=== PATIENT | female | born 1950 | race African-American/Black ===

== ENCOUNTER 2025-06-04 18:25 | Inpatient (IN) ==
[2025-06-04 19:19] LABS: Hematocrit (blood only) 44.3 % (37.0-47.0); Hemoglobin 13.0 g/dL (12.0-16.0); Immature Granulocytes # (auto) 0.04 K/uL (0.01-0.20); Immature Granulocytes % (auto) 0.4 %; Mean Corpuscular Hemoglobin 27.0 pg (25.0-34.0); Mean Corpuscular Volume 91.9 fL (80.0-100.0); Platelet Count 238 K/uL (130-400); RDW Standard Deviation 49.8 fL (36.4-46.3); Red Blood Count 4.82 M/uL (4.20-5.40); White Blood Count 9.94 K/ul (4.8-10.8)
[2025-06-04] MEDS: ONDANSETRON INJ 2 MG/ML 2 ML VIAL IV STA (19:28)
[2025-06-04 19:41] LABS: Alanine Aminotransferase 12 U/L (7-52); Albumin Globulin Ratio 1.0 (0.9-2); Albumin Level 4.3 gm/dl (3.4-5.0); Alkaline Phosphatase 81 U/L (34-104); Bilirubin,Total 0.4 mg/dl (0.2-1.0); Blood Urea Nitrogen 51 mg/dl (6-23); Calcium 9.7 mg/dl (8.6-10.3); Carbon Dioxide 18 mmol/L (21-32); Chloride 110 mmol/L (98-107); Globulin 4.5 gm/dl (2.5-4.0); Glucose 159 mg/dl (70-99(Fasting)); Lipase 315 U/L (11-82); Total Protein 8.8 gm/dl (6.0-8.3)
--- NOTE | 2025-06-04 19:57 | Emergency Department Note ---
ED Provider Note History of Present Illness Chief Complaint: Abdominal Pain Stated Complaint: STOMACH PAIN VOMIT DIARRHEA Time Seen by Provider: 06/04/25 18:41 74-year-old female, history of type 2 diabetes, chronic kidney disease stage IIIb, hypertension, atrial flutter, secondary hyperparathyroidism, COPD on 2 L/min oxygen daily with CPAP use at nighttime, as well as history of autism spectrum disorder, who presents to the emergency department with her grandchildren for evaluation of nausea, vomiting and profuse diarrhea for the past 2 days. They report that they have been unable to get adequate fluids on board. They also tried an Imodium A-D today with no improvement of her diarrhea. The patient complains of generalized abdominal discomfort. She denies any chest pain or shortness of breath. The patient was unable to rate her pain on my examination, but rated her discomfort a 10 out of 10 in triage. Home Medications Medication Instructions Recorded Confirmed Type acetaminophen 325 mg tablet 650 mg PO BID PRN Pain 05/29/25 06/04/25 History albuterol sulfate 2.5 mg/3 mL 2.5 mg inhalation Q4H PRN 05/29/25 06/04/25 History (0.083 %) solution for nebulization Shortness Of Breath Or Wheezing allopurinol 100 mg tablet 100 mg PO DAILY 05/29/25 06/04/25 History aspirin 81 mg tablet 81 mg PO DAILY 05/29/25 06/04/25 History cranberry extract 500 mg capsule 500 mg PO DAILY 05/29/25 06/04/25 History empagliflozin 10 mg tablet 10 mg PO DAILY 05/29/25 06/04/25 History (Jardiance) ferrous sulfate 325 mg (65 mg 325 mg PO DAILY 05/29/25 06/04/25 History iron) tablet (FeroSul) fluticasone fur. 200 mcg-umeclid 1 inh inhalation DAILY 05/29/25 06/04/25 History 62.5 mcg-vilant 25 mcg inhalat.powder (Trelegy Ellipta) folic acid 1 mg tablet 1 mg PO DAILY 05/29/25 06/04/25 History gabapentin 100 mg capsule 100 mg PO TID 05/29/25 06/04/25 History hydrochlorothiazide 12.5 mg tablet 12.5 mg PO DAILY 05/29/25 06/04/25 History lidocaine 5 % topical patch 1 patch topical DAILY 05/29/25 06/04/25 History melatonin 3 mg tablet 3 mg PO HS PRN Sleep 05/29/25 06/04/25 History montelukast 10 mg tablet 10 mg PO DAILY 05/29/25 06/04/25 History nifedipine 30 mg tablet,extended 30 mg PO DAILY 05/29/25 06/04/25 History release nystatin 100,000 unit/gram topical 1 applic topical BID 05/29/25 06/04/25 History powder sertraline 25 mg tablet 25 mg PO DAILY 05/29/25 06/04/25 History atorvastatin 20 mg tablet 20 mg PO QPM #90 tabs 06/03/25 06/04/25 Rx Allergies Allergy/AdvReac Type Severity Reaction Status Date / Time No Known Allergies Allergy Verified 06/04/25 20:18 Past Med/Surg History Problem List (Updated 06/04/25 @ 20:12 by Karl Garg) Nausea, vomiting and diarrhea (Acute) Elevated troponin I level (Acute) Elevated lipase (Acute) Acute kidney injury superimposed on stage 3b chronic kidney disease (Acute) Hyperuricemia Recurrent UTI Screening for cardiovascular condition On supplemental oxygen therapy CKD (chronic kidney disease) Medical History HTN (hypertension) Anxiety and depression COPD (chronic obstructive pulmonary disease) Chronic kidney disease, stage 3b Secondary hyperparathyroidism Sarcoidosis Anemia in chronic kidney disease Autism spectrum disorder with accompanying intellectual impairment, requiring substantial support (level 2) Vitamin D deficiency Chronic respiratory failure with hypoxia H/O renal calculi JOAQUIN on CPAP Atrial flutter As per the correction records. Not on anticoagulation or beta margaux. Heart rate usually in 60s. Type 2 diabetes mellitus with peripheral neuropathy Hyperlipidemia associated with type 2 diabetes mellitus Asthma Surgical History No pertinent past surgical history Family History Mother Myocardial infarction Father Myocardial infarction Daughter Hypertension Denies family history of Ovarian cancer Prostate cancer Heart disease Breast cancer Colorectal cancer Stroke Social History Smoking Status: Former smoker Tobacco Type: Cigarettes Age Started Using Tobacco: 16; Age Quit Using Tobacco: 29; packs per day: 0.25; Second Hand Exposure: Yes; Do You Dip or Chew Tobacco: No; Hx Alcohol Use: No Hx Substance Use: No Preferred Language: [place]i Communication Ability: Effective marital status: Single Current Living Situation: Family current occupational status: disabled How many Children do You have: 2 Feels Safe at Home: Yes Childhood Exposure to Second-Hand Smoke: Yes Diet: regular caffeine: Yes Dental Care, Regularly: No Physical Activity Frequency: Does not Exercise Seatbelt Use: always Sunscreen Use: No Do you think of yourself as: straight/heterosexual Gender Identity: Female Assistive Devices: CPAP, Glasses and Oxygen - Continuous Physical Exam Vital Signs Vital Signs - 24 hr 06/04/25 18:35 06/04/25 18:56 06/04/25 20:20 Temperature 37.2 C Temperature Source Temporal Artery Scan Pulse Rate 101 H 72 89 Pulse Rhythm Regular Respiratory Rate 16 Respiratory Effort / Characteristics Non-Labored Spontaneous Respiratory Depth Normal Respiratory Pattern Regular Blood Pressure 169/93 H Blood Pressure Mean 118 Pulse Oximetry 96 96 Oxygen Delivery Method Nasal Cannula Nasal Cannula Oxygen Flow Rate 2 2 Sepsis Recent Fever Within 48 Hours No Sepsis New/Unexplained Change in Mental Status N/A Sepsis Action Taken by Nursing No Action Required CONSTITUTIONAL: Patient appears in moderate discomfort. Patient does not appear toxic. Collecting history is difficult because of her autism. HEENT: No sclericterus or conjunctival injection. Mucous membranes are dry. RESPIRATORY: Clear to auscultation bilaterally with no wheezing, crackles, rhonchi or stridor. CARDIOVASCULAR: Regular rate and rhythm with no murmurs, rubs or gallops. GASTROINTESTINAL: Bowel sounds present in all quadrants. Patient has mild and generalized abdominal tenderness to palpation while watching the patient's face. No obvious rigidity, guarding or rebound. MUSCULOSKELETAL: Full range of motion of all joints without discomfort. INTEGUMENTARY: No rash or other significant dermatologic conditions noted. HEMATOLOGIC: No ecchymosis or petechiae. NEUROLOGIC: No focal neurologic deficits appreciated. Course Course Patient history and physical exam were performed. Nursing notes were reviewed. Vital signs from triage were reviewed, showing an elevated blood pressure. The patient is mildly tachycardic at 101 bpm. She is afebrile and not hypoxic. IV access was established, and labs were ordered and drawn. The patient was initially hydrated with a normal saline 500 cc bolus, as well as IV Zofran and Tylenol. An ECG was performed, showing sinus rhythm with a first-degree AV block and bifascicular block. The patient was placed on manager monitoring while in the emergency department. Abdomen x-ray with chest view shows gastric distention without obvious obstruction. Cardiomegaly is noted with an elevated left hemidiaphragm. No prior imaging was found for comparison. Review of labs shows relatively normal CBC with a mildly elevated neutrophil count. CMP shows a bumped creatinine of 2.13 with an elevated troponin of 15.5 and lipase of 315. We were unable to collect a urine from the patient. On evaluation, the patient did report improvement of symptoms. She was administered an additional normal saline 500 cc bolus. Case was discussed with Dr. Crespo, ED team physician, who recommended hospitalist evaluation. I then reached out to our Inserting Press Operator, who contacted the [facility] hospitalist service. I spoke with Dr. López who agreed to evaluate the patient. Please see hospitalist dictations for further treatment and final disposition. Administered Medications Discontinued Medications Acetaminophen (Ofirmev) 1,000 mg in 100 mls @ 400 mls/hr IV NOW STA Stop: 06/04/25 19:04 Last Admin: 06/04/25 20:11 Dose: 400 mls/hr Documented By: [facility] Sodium Chloride (Nss) 500 mls @ 999 mls/hr IV .Q31M ONE Stop: 06/04/25 19:20 Last Admin: 06/04/25 20:11 Dose: 999 mls/hr Documented By: [facility] Ondansetron HCl (Ondansetron Inj 2 Mg/Ml 2 Ml Vial) 4 mg IV NOW STA Stop: 06/04/25 18:51 Last Admin: 06/04/25 19:28 Dose: 4 mg Documented By: [facility] Medical Decision Making Medical Records Attestation: I reviewed the patient's medical records. Home Medications was personally reviewed by hi Laboratory Data Attestation: I reviewed the patient's lab results. 06/04/25 19:04 06/04/25 19:04 Lab Results 06/04/25 Range/Units 19: WBC 9.94 (4.8-10.8) K/ul RBC 4.82 (4.20-5.40) M/uL Hgb 13.0 (12.0-16.0) g/dL Hct 44.3 (37.0-47.0) % MCV 91.9 (80.0-100.0) fL MCH 27.0 (25.0-34.0) pg MCHC 29.3 L (32.0-36.0) g/dL RDW Std Deviation 49.8 H (36.4-46.3) fL RDW Coeff of Isabell 14.9 H (11.5-14.5) % Plt Count 238 (130-400) K/uL MPV 11.2 (9.4-12.4) fL Immature Gran % (Auto) 0.4 % Neut % (Auto) 84.8 % Lymph % (Auto) 7.6 % Page % (Auto) 6.6 % Eos % (Auto) 0.5 % Baso % (Auto) 0.1 % Neut # (Auto) 8.42 H (1.40-6.50) K/uL Lymph # (Auto) 0.76 L (1.20-3.40) K/uL Page # (Auto) 0.66 H (0.11-0.59) K/uL Eos # (Auto) 0.05 (0.00-0.50) K/uL Baso # (Auto) 0.01 (0.00-0.20) K/uL Immature Gran # (Auto) 0.04 (0.01-0.20) K/uL Sodium TNP Potassium TNP Chloride 110 H (98-107) mmol/L Carbon Dioxide 18 L (21-32) mmol/L Anion Gap TNP BUN 51 H (6-23) mg/dl Creatinine 2.13 H (0.6-1.2) mg/dl Est Cr Clr Drug Dosing Not Reportable eGFR 23.71 BUN/Creatinine Ratio 23.9 H (10-20) Glucose 159 H (70-99(Fasting)) mg/dl Calcium 9.7 (8.6-10.3) mg/dl Total Bilirubin 0.4 (0.2-1.0) mg/dl AST TNP ALT 12 (7-52) U/L Alkaline Phosphatase 81 (34-104) U/L Troponin I High Sens 15.5 H (0-14) pg/ml Total Protein 8.8 H (6.0-8.3) gm/dl Albumin 4.3 (3.4-5.0) gm/dl Globulin 4.5 H (2.5-4.0) gm/dl Albumin/Globulin Ratio 1.0 (0.9-2) Lipase 315 H (11-82) U/L Imaging Data Attestation: I personally reviewed and interpreted this imaging study as follows: My Impression: My interpretation of abdomen x-ray with chest view shows a distended stomach without obstructive pattern, abdominal free air, pneumonia or pneumothorax. Patient does have cardiomegaly, as well as an elevated left hemidiaphragm. Radiologist report was also reviewed with concurrence. ECG Data Attestation: I personally reviewed and interpreted this ECG as follows: Indication: + abdominal pain, + nausea and + vomiting Rate (beats per minute): 67 Rhythm: + sinus rhythm ECG Intervals/blocks: + First degree AV block, + Left anterior fascicular block and + Right Bundle branch block ECG Findings: + Other (Bifascicular block) Comparison ECG Date: from (01/26/2025) Change: no significant change MDM Narrative Cardiac monitoring: An order was placed for continuous cardiac monitoring. The monitor shows a rate of 64 bpm with a sinus rhythm with first-degree AV block and bifascicular block. monitoring analyst history was reviewed throughout the evaluation, and no dysrhythmias were noted. See ED Course section for further details of today's visit. Patient presents with acute onset of nausea, vomiting and profuse watery diarrhea 2 days ago. The patient does have a history of stage III chronic kidney disease, with a bumped creatinine today, likely secondary to dehydration. She also has an elevated lipase and troponin, likely secondary to stress-induced changes from her illness. Patient is afebrile and does not have any significant leukocytosis to suggest overwhelming infection. Her clinical examination is not suggestive of a surgical abdomen. Given her acute state, I do feel that further hospitalist evaluation and management is warranted. The case was discussed with the [facility] hospitalist service, who agrees to evaluate the patient. Impression Acute kidney injury superimposed on stage 3b chronic kidney disease, Elevated lipase, Elevated troponin I level, Nausea, vomiting and diarrhea Discharge Plan Visit Data Chief Complaint: Abdominal Pain Stated Complaint: STOMACH PAIN VOMIT DIARRHEA ED Provider: Marcin Nunes ED Midlevel Provider: Karl Garg Discharge Problem: Acute kidney injury superimposed on stage 3b chronic kidney disease, Elevated lipase, Elevated troponin I level, Nausea, vomiting and diarrhea Patient Disposition: Admitted As Inpatient Condition: Fair Forms Stand Alone Forms: My [facility] Prescriptions Prescriptions: No Action montelukast 10 mg tablet 10 mg PO DAILY allopurinol 100 mg tablet 100 mg PO DAILY aspirin 81 mg tablet 81 mg PO DAILY Jardiance 10 mg tablet 10 mg PO DAILY ferrous sulfate [FeroSul] 325 mg (65 mg iron) tablet 325 mg PO DAILY folic acid 1 mg tablet 1 mg PO DAILY gabapentin 100 mg capsule 100 mg PO TID Rx Instructions: for pain hydrochlorothiazide 12.5 mg tablet 12.5 mg PO DAILY Rx Instructions: for BP/fluid retention melatonin 3 mg tablet 3 mg PO HS PRN (Reason: Sleep) nifedipine 30 mg tablet extended release 30 mg PO DAILY Rx Instructions: for BP nystatin 100,000 unit/gram powder 1 applic topical BID Rx Instructions: under breast lidocaine 5 % adhesive patch,medicated 1 patch topical DAILY Rx Instructions: leave on most painful area for up to 12 hrs Trelegy Ellipta 200-62.5-25 mcg blister with device 1 inh inhalation DAILY albuterol sulfate 2.5 mg /3 mL (0.083 %) solution for nebulization 2.5 mg inhalation Q4H PRN (Reason: Shortness Of Breath Or Wheezing) cranberry extract 500 mg capsule 500 mg PO DAILY Rx Instructions: administer with meals for UTI prevention sertraline 25 mg tablet 25 mg PO DAILY acetaminophen 325 mg tablet 650 mg PO BID PRN (Reason: Pain) atorvastatin 20 mg tablet 20 mg PO QPM Qty: 90 3RF Rx Instructions: PER PT'S GRANDDAUGHTER "DID NOT FEATHER MAKER FROM PHARMACY YET, NOT STARTED YET". Referrals Referrals: Beena Berman MD [Primary Care Provider] - ED DC CONDITION Conditon at Discharge Condition at Discharge: Fair
[2025-06-04] MEDS: SODIUM CHLORIDE 0.9% 500 ML IV ONE ×2 (20:11→21:22)
[2025-06-04] MEDS: ACETAMINOPHEN 1,000 MG/100 ML VIAL IV STA (20:11)
--- NOTE | 2025-06-04 20:25 | XRay Report ---
Exam(s): XR ABDOMEN, 2 views EXAM: XR Abdomen, 2 Views and XR Chest, 1 View CLINICAL HISTORY: Reason for exam: Abd pain, N/V/D. TECHNIQUE: Frontal view of the chest, frontal view of the abdomen/pelvis and upright or decubitus view of the abdomen. COMPARISON: No relevant prior studies available. FINDINGS: Lungs: Unremarkable. No consolidation. Pleural space: Unremarkable. No pneumothorax. Heart: Cardiomegaly. Mediastinum: Unremarkable. Normal mediastinal contour. Intraperitoneal space: No gaseous distention of the small bowel or colon. Paucity of bowel gas. There is gaseous distention of the stomach. No free air. Gastrointestinal tract: Unremarkable. No dilation. Bones/joints: Severe degenerative changes in the shoulders. Other findings: Elevated left hemidiaphragm. IMPRESSION: 1. Gaseous distention of the stomach. No evidence of small bowel obstruction. 2. Cardiomegaly. 3. Elevated left hemidiaphragm. Electronically signed by: Jean Claude Albarado MD 06/04/25 20:24 PM
--- NOTE | 2025-06-04 20:42 | History & Physical Report ---
Date of Service June 04, 2025 Assessment & Plan (1) Nausea, vomiting and diarrhea: (2) Yegaw-sf-rnexwel kidney injury: (3) Elevated troponin I level: (4) Elevated lipase: (5) COPD (chronic obstructive pulmonary disease): (6) JOAQUIN on CPAP: (7) Atrial flutter: (8) Type 2 diabetes mellitus with peripheral neuropathy: Plan 74yo female presenting with one day of watery diarrhea, nausea and vomiting. #Nausea/vomiting/diarrhea - suspect viral gastroenteritis. Patient was in contact with family member with similar symptoms. She does appear to be volume contracted on exam. No recent antibiotic use. -Admit to medical -Maintain contact isolation precautions for now -Check stool PCR -IVF with LR at 100mL/hr x 2L -Zofran PRN #Acute on Chronic CHRISTY - patient with CKD-III, last Cr on record=1.78. Presenting today with Cr of 2.13. Patient with hyperkalemia, metabolic acidosis. No EKG changes. Likely secondary to volume contraction, diarrheal losses. Patient also on fluid restriction 1500mL at home. -IVF with LR at 100mL/hr x 2L -Calcium gluconate x 1gm -Repeat chemistry in AM -Hold nephrotoxic agents -Renal dosing where needed #Elevated troponin - minimal elevation - troponin=15.5. No chest pain. No ischemic EKG changes -Telemetry monitoring -Repeat troponin -Continue home ASA #Hypertension -Continue Nifedipine 30mg po daily -Hold HCTZ - patient volume contracted -Monitor BP #Hyperlipidemia -Patient recently prescribed Atorvastatin 20mg daily. She has not yet started this medication -Will continue to hold for now. Patient can start medication upon discharge #Diabetes -Hold Jardiance for now -Lantus 5u BID -ISS -Continue Gabapentin 100mg po TID for neuropathy #COPD/Asthma -Continue Trelegy or formulary equivalent -Albuterol PRN -Continue Singulair 10mg po daily #Mental Health -Continue Sertraline 25mg po daily #JOAQUIN on CPAP -Continue CPAP qHS #Atrial flutter - patient currently not on anticoagulation -Rate controlled F/E/N - LR at 100mL/hr x 2L, monitor electrolytes, K, Regular diet as tolerated PPx - SCDs Code - Full History of Present Illness Chief Complaint: nausea, vomiting, diarrhea Primary Care Provider: Beena Berman MD Pati Gamez is a 74yo female with history of Diabetes, Hypertension, COPD, CKD- III and Autism spectrum disorder presenting with her granddaughters with complaint of nausea, vomiting and diarrhea. Patient has had one day of diarrhea - 10+ episodes prior to arrival and 3+ episodes since being in the ER. Watery, mucoid and non-bloody. Some abdominal pain as well. Also with nausea and several episodes of non-bloody diarrhea. Patient has been in contact with family member with similar symptoms. No additional complaints at this time - denies fever, chills, chest pain, cough, SOB. Has had some decreased UOP In the ER patient is afebrile, HD stable ER Course: NSS x 1L Tylenol 1gm Zofran 4mg IV Allergies Allergy/AdvReac Type Severity Reaction Status Date / Time No Known Allergies Allergy Verified 06/04/25 20:18 Home Medications Medication Instructions Recorded Confirmed Type acetaminophen 325 mg tablet 650 mg PO BID PRN Pain 05/29/25 06/04/25 History albuterol sulfate 2.5 mg/3 mL 2.5 mg inhalation Q4H PRN 05/29/25 06/04/25 History (0.083 %) solution for nebulization Shortness Of Breath Or Wheezing allopurinol 100 mg tablet 100 mg PO DAILY 05/29/25 06/04/25 History aspirin 81 mg tablet 81 mg PO DAILY 05/29/25 06/04/25 History cranberry extract 500 mg capsule 500 mg PO DAILY 05/29/25 06/04/25 History empagliflozin 10 mg tablet 10 mg PO DAILY 05/29/25 06/04/25 History (Jardiance) ferrous sulfate 325 mg (65 mg 325 mg PO DAILY 05/29/25 06/04/25 History iron) tablet (FeroSul) fluticasone fur. 200 mcg-umeclid 1 inh inhalation DAILY 05/29/25 06/04/25 History 62.5 mcg-vilant 25 mcg inhalat.powder (Trelegy Ellipta) folic acid 1 mg tablet 1 mg PO DAILY 05/29/25 06/04/25 History gabapentin 100 mg capsule 100 mg PO TID 05/29/25 06/04/25 History hydrochlorothiazide 12.5 mg tablet 12.5 mg PO DAILY 05/29/25 06/04/25 History lidocaine 5 % topical patch 1 patch topical DAILY 05/29/25 06/04/25 History melatonin 3 mg tablet 3 mg PO HS PRN Sleep 05/29/25 06/04/25 History montelukast 10 mg tablet 10 mg PO DAILY 05/29/25 06/04/25 History nifedipine 30 mg tablet,extended 30 mg PO DAILY 05/29/25 06/04/25 History release nystatin 100,000 unit/gram topical 1 applic topical BID 05/29/25 06/04/25 History powder sertraline 25 mg tablet 25 mg PO DAILY 05/29/25 06/04/25 History atorvastatin 20 mg tablet 20 mg PO QPM #90 tabs 06/03/25 06/04/25 Rx Past Med/Surg History Problem List (Updated 06/04/25 @ 22:33 by Heather López DO) Ljgba-mj-bjcglhi kidney injury Nausea, vomiting and diarrhea (Acute) Elevated troponin I level (Acute) Elevated lipase (Acute) Acute kidney injury superimposed on stage 3b chronic kidney disease (Acute) Hyperuricemia Recurrent UTI Screening for cardiovascular condition On supplemental oxygen therapy CKD (chronic kidney disease) Medical History HTN (hypertension) Anxiety and depression COPD (chronic obstructive pulmonary disease) Chronic kidney disease, stage 3b Secondary hyperparathyroidism Sarcoidosis Anemia in chronic kidney disease 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 Not on anticoagulation or beta margaux. Heart rate usually in 60s. Type 2 diabetes mellitus with peripheral neuropathy Hyperlipidemia associated with type 2 diabetes mellitus Asthma Surgical History No pertinent past surgical history Family History Mother Myocardial infarction Father Myocardial infarction Daughter Hypertension Denies family history of Ovarian cancer Prostate cancer Heart disease Breast cancer Colorectal cancer Stroke Social History Smoking Status: Former smoker Tobacco Type: Cigarettes Age Started Using Tobacco: 16; Age Quit Using Tobacco: 29; packs per day: 0.25; Second Hand Exposure: Yes; Do You Dip or Chew Tobacco: No; Hx Alcohol Use: No Hx Substance Use: No Preferred Language: Yakut Communication Ability: Effective marital status: Single Current Living Situation: Family current occupational status: disabled How many Children do You have: 2 Feels Safe at Home: Yes Childhood Exposure to Second-Hand Smoke: Yes Diet: regular caffeine: Yes Dental Care, Regularly: No Physical Activity Frequency: Does not Exercise Seatbelt Use: always Sunscreen Use: No Do you think of yourself as: straight/heterosexual Gender Identity: Female Assistive Devices: CPAP, Glasses and Oxygen - Continuous Review of Systems Review of Systems: All systems reviewed & are unremarkable except as noted in HPI & below Physical Exam Physical Exam: General: patient resting comfortably, NAD, non-toxic in appearance, patient provides minimal verbal response, granddaughters at bedside provide history Skin: warm, dry, intact, no rashes or lesions HEENT: NC/AT, PERRL, EOMI, anicteric sclera, conjunctiva without injection, external ear normal to inspection and nontender, nares patent, dry mucus membranes, dentition intact, no oropharyngeal lesions, neck supple, trachea midline, no LAD, no thyromegaly, no JVD Heart: +S1/S2, regular, 4/6 ARNALDO across precordium, no rubs/gallops Lungs: equal air entry bilaterally, no rales/rhonchi/wheezes Abd: +BS, soft, non-distended, tender in the lower abdomen without rebound/guarding, no masses/organomegaly/ascites Ext: warm, 2+ pulses in UE/LE bilaterally, no clubbing/cyanosis or edema Neuro: nonfocal, speech intact, no facial droop, moving all extremities on command with equal strength 5/5 Results & Data Results & Data Vital Signs (Past 12 Hours) Vital Signs Temp Pulse Resp BP Pulse Ox O2 Del Method O2 Flow Rate 06/04/25 20:20 89 96 Nasal Cannula 2 06/04/25 18:56 72 06/04/25 18:35 37.2 C 101 H 16 169/93 H 96 Nasal Cannula 2 Laboratory Results Laboratory Results WBC 9.94 K/ul (4.8-10.8) 06/04/25 19:04 RBC 4.82 M/uL (4.20-5.40) 06/04/25 19:04 Hgb 13.0 g/dL (12.0-16.0) 06/04/25 19:04 Hct 44.3 % (37.0-47.0) 06/04/25 19:04 MCV 91.9 fL (80.0-100.0) 06/04/25 19:04 MCH 27.0 pg (25.0-34.0) 06/04/25 19:04 MCHC 29.3 g/dL (32.0-36.0) L 06/04/25 19:04 RDW Std Deviation 49.8 fL (36.4-46.3) H 06/04/25 19:04 RDW Coeff of Isabell 14.9 % (11.5-14.5) H 06/04/25 19:04 Plt Count 238 K/uL (130-400) 06/04/25 19:04 MPV 11.2 fL (9.4-12.4) 06/04/25 19:04 Immature Gran % (Auto) 0.4 % 06/04/25 19:04 Neut % (Auto) 84.8 % 06/04/25 19:04 Lymph % (Auto) 7.6 % 06/04/25 19:04 [place] % (Auto) 6.6 % 06/04/25 19:04 Eos % (Auto) 0.5 % 06/04/25 19:04 Baso % (Auto) 0.1 % 06/04/25 19:04 Neut # (Auto) 8.42 K/uL (1.40-6.50) H 06/04/25 19:04 Lymph # (Auto) 0.76 K/uL (1.20-3.40) L 06/04/25 19:04 [place] # (Auto) 0.66 K/uL (0.11-0.59) H 06/04/25 19:04 Eos # (Auto) 0.05 K/uL (0.00-0.50) 06/04/25 19:04 Baso # (Auto) 0.01 K/uL (0.00-0.20) 06/04/25 19:04 Immature Gran # (Auto) 0.04 K/uL (0.01-0.20) 06/04/25 19:04 Sodium 141 mmol/L (136-145) 06/04/25 20:42 Potassium 5.9 mmol/L (3.5-5.1) H 06/04/25 20:42 Chloride 110 mmol/L (98-107) H 06/04/25 19:04 Carbon Dioxide 18 mmol/L (21-32) L 06/04/25 19:04 Anion Gap TNP 06/04/25 19:04 BUN 51 mg/dl (6-23) H 06/04/25 19:04 Creatinine 2.13 mg/dl (0.6-1.2) H 06/04/25 19:04 Est Cr Clr Drug Dosing Not Reportable 06/04/25 19:04 eGFR 23.71 06/04/25 19:04 BUN/Creatinine Ratio 23.9 (10-20) H 06/04/25 19:04 Glucose 159 mg/dl (70-99(Fasting)) H 06/04/25 19:04 Calcium 9.7 mg/dl (8.6-10.3) 06/04/25 19:04 Total Bilirubin 0.4 mg/dl (0.2-1.0) 06/04/25 19:04 AST 17 U/L (13-39) 06/04/25 20:42 ALT 12 U/L (7-52) 06/04/25 19:04 Alkaline Phosphatase 81 U/L (34-104) 06/04/25 19:04 Troponin I High Sens 15.5 pg/ml (0-14) H 06/04/25 19:04 Total Protein 8.8 gm/dl (6.0-8.3) H 06/04/25 19:04 Albumin 4.3 gm/dl (3.4-5.0) 06/04/25 19:04 Globulin 4.5 gm/dl (2.5-4.0) H 06/04/25 19:04 Albumin/Globulin Ratio 1.0 (0.9-2) 06/04/25 19:04 Lipase 315 U/L (11-82) H 06/04/25 19:04 Impressions Chest/Abdomen X-ray 06/04/25 18:51 Exam(s): XR ABDOMEN, 2 views EXAM: XR Abdomen, 2 Views and XR Chest, 1 View CLINICAL HISTORY: Reason for exam: Abd pain, N/V/D. TECHNIQUE: Frontal view of the chest, frontal view of the abdomen/pelvis and upright or decubitus view of the abdomen. COMPARISON: No relevant prior studies available. FINDINGS: Lungs: Unremarkable. No consolidation. Pleural space: Unremarkable. No pneumothorax. Heart: Cardiomegaly. Mediastinum: Unremarkable. Normal mediastinal contour. Intraperitoneal space: No gaseous distention of the small bowel or colon. Paucity of bowel gas. There is gaseous distention of the stomach. No free air. Gastrointestinal tract: Unremarkable. No dilation. Bones/joints: Severe degenerative changes in the shoulders. Other findings: Elevated left hemidiaphragm. IMPRESSION: 1. Gaseous distention of the stomach. No evidence of small bowel obstruction. 2. Cardiomegaly. 3. Elevated left hemidiaphragm. Electronically signed by: Jean Claude Albarado MD 06/04/25 20:24 PM ECG Additional Comments: EKG with SR at 67bpm, NN=744, JAX=798, ESj=527, RBBB present, no acute ischemic changes Code Status & VTE Plan VTE Prophylaxis Plan VTE Prophylaxis will be ordered: Yes PG Care Time/CCT Total # of Minutes Spent Total Time Spent with Patient: Total time spent is greater than 50% in coordination of care (as documented) at patient's floor/unit and/or counseling patient: Coding Level of Care Code 34749 INT INP/OBS CARE 3/75MIN Diagnoses Nausea, vomiting and diarrhea R11.2; R19.7 Ssbgc-mx-rrldfzn kidney injury N17.9; N18.9 Elevated troponin I level R79.89 Elevated lipase R74.8 Chronic obstructive pulmonary disease, unspecified COPD type J44.9 COPD type: unspecified COPD JOAQUIN on CPAP G47.33 Atrial flutter I48.92 Type 2 diabetes mellitus with peripheral neuropathy E11.42 (5) COPD (chronic obstructive pulmonary disease) COPD type: unspecified COPD Qualified Code(s): J44.9 - Chronic obstructive pulmonary disease, unspecified
[2025-06-04 21:07] LABS: Potassium 5.9 mmol/L (3.5-5.1); Sodium 141.0 mmol/L (136-145)
[2025-06-04] MEDS ORDERED: ACETAMINOPHEN 325 MG TAB PO PRN (23:36)
[2025-06-04] MEDS ORDERED: GLUCOSE 10 TAB/TUBE PO PRN (23:36)
[2025-06-04] MEDS ORDERED: CARBOHYDRATES FOR HYPOGLYCEMIA PO PRN (23:36)
[2025-06-04] MEDS ORDERED: GLUCOSE 40% GEL 15 GM TUBE PO PRN (23:36)
[2025-06-04] MEDS ORDERED: GLUCAGON FOR INJ 1 MG VIAL SQ PRN (23:36)
[2025-06-04] MEDS ORDERED: DEXTROSE 50% 50 ML SYRINGE IV PRN (23:36)
[2025-06-05] MEDS: REMOVE LIDODERM PATCH SCH (00:22)
[2025-06-05] MEDS: INSULIN ASPART PER UNIT CHARGE SC SCH (00:22)
[2025-06-05] MEDS: LACTATED RINGER'S 1,000 ML IV SCH (00:45)
[2025-06-05] MEDS: CALCIUM GLUCONATE 1,000 MG/60 ML BAG IV STA ×2 (00:49→17:01)
[2025-06-05] MEDS: NYSTATIN POWDER 15GM BTL EXT SCH (00:53)
[2025-06-05] MEDS: LANTUS PER UNIT CHARGE SQ SCH (00:53)
[2025-06-05] MEDS: GABAPENTIN 100 MG CAP PO SCH (00:53)
[2025-06-05 05:44] LABS: Adenovirus F 40/41 PCR Not Detected (NotDetected); Campylobacter PCR Not Detected (NotDetected); Enteroaggregative E.coli(EAEC) Not Detected (NotDetected); Shiga-like Toxin E.coli (STEC) Not Detected (NotDetected); Vibrio species PCR Not Detected (NotDetected)
[2025-06-05 06:17] LABS: Cdiff Toxin B Gene (2yr or >) Positive Cdiff Gene (Neg)
[2025-06-05 06:20] LABS: Cdiff Toxin A+B Negative Cdiff Toxin (Negative)
[2025-06-05 06:42] LABS: Hematocrit (blood only) 42.4 % (37.0-47.0); Hemoglobin 12.6 g/dL (12.0-16.0); Mean Corpuscular Hemoglobin 27.8 pg (25.0-34.0); Mean Corpuscular Volume 93.4 fL (80.0-100.0); Platelet Count 213 K/uL (130-400); RDW Standard Deviation 51.4 fL (36.4-46.3); Red Blood Count 4.54 M/uL (4.20-5.40); White Blood Count 7.83 K/ul (4.8-10.8)
[2025-06-05 06:59] LABS: Anion Gap 9.0 (3-11); Blood Urea Nitrogen 53.0 mg/dl (6-23); Calcium 9.7 mg/dl (8.6-10.3); Carbon Dioxide 15.0 mmol/L (21-32); Chloride 117.0 mmol/L (98-107); Creatinine Clr Calc Pharmacy 23.6 ml/min; Glucose 114.0 mg/dl (70-99(Fasting)); Potassium 5.0 mmol/L (3.5-5.1); Sodium 141.0 mmol/L (136-145)
[2025-06-05] MEDS ORDERED: NON-FORMULARY MEDICATION (Fluticasone-Umeclidin-Vilanter [Trelegy Ellipta] 200-62.5-25 mcg INH SCH (09:00)
[2025-06-05] MEDS ORDERED: STAT IV/IM STA (09:14)
[2025-06-05] MEDS: ACETAMINOPHEN 1,000 MG/100 ML VIAL IV PRN (10:08)
[2025-06-05] MEDS: FOLIC ACID 1 MG TAB PO SCH (10:17)
[2025-06-05] MEDS: ASPIRIN 81 MG ECTAB PO SCH (10:17)
[2025-06-05] MEDS: SERTRALINE HCL 50 MG TABLET PO SCH (10:18)
[2025-06-05] MEDS: MONTELUKAST SODIUM 10 MG TABLET PO SCH (10:18)
[2025-06-05] MEDS: NIFEdipine EXTENDED REL 30 MG TABCR PO SCH (10:18)
[2025-06-05] MEDS: FLUTICASONE FUROATE 200MCG 14 PUFFS/INHALER INH SCH (10:22)
[2025-06-05] MEDS: UMECLIDINIUM/VILANTEROL 62.5/25MCG 7 PUFFS/INHALER INH SCH (10:23)
[2025-06-05] MEDS: SODIUM BICARBONATE 8.4% 150 MEQ in DEXTROSE 5% 1,000 ML IV SCH (10:37)
[2025-06-05] MEDS: LIDOCAINE 5% 1 PATCH TD SCH (11:40)
--- NOTE | 2025-06-05 12:18 | Hospitalist Progress Note ---
Date of Service June 05, 2025 Assessment & Plan (1) Nausea, vomiting and diarrhea: (2) Mnget-ab-krdslhf kidney injury: (3) Elevated troponin I level: (4) Elevated lipase: (5) COPD (chronic obstructive pulmonary disease): Plan 74yo female presenting with one day of watery diarrhea, nausea and vomiting on 06/04/2025. #Nausea/vomiting/diarrhea Was in contact with family member with similar symptoms. Stool Biofire + for Norovirus & Rotavirus. C diff gene positive but toxin negative --> defer PO abx at this time given neg toxin. Supportive care w/ IVF, antiemetics, & tylenol for pain/fever. Add PPI IV BID Isolation precautions in place. Will require PT/OT when symptoms subside, per granddaughter does not walk but is able to transfer to wheel chair by pivoting on own most times. #Acute kidney injury on CKD stage III/hyperkalemia patient with CKD-III, last Cr on record=1.78, suspect baseline? Creatinine continued to up trend to 2.37, K elevated at 5.6 Sodium bicarb started & increased to 150ml/hr, additional calcium gluconate given, & 10 units of IV insulin. Repeat BMP this evening & adjust as necessary. Per PCP, is being referred to nephrology on outpatient bases. Hold nephrotoxic agents & renally dose where needed. #Metabolic Acidosis-none anion gap Secondary to diarrheal losses of bicarbonate Continue to monitor BMP - labs appear worse 06/05 PM --> Cl 120; CO2 14. sodium bicarb as above #Dysphagia noticed by staff to be coughing w/ water intake, pt without mention of symptoms. Speech eval 06/05 - tolerated water/pudding/crackers fine --> upon lunch w/ staff at bedside patient began coughing w/ thin liquids Maintain NPO status, okay for sips/chips & pudding w/ pills. speech following. Swallow study set for 06/08. #Elevated troponin Trop trended upward to 24.2 but has since down trended to 22.7 EKG was without ischemic changes; no reports of CP. #Hypertension Continue Nifedipine 30mg po daily Hold HCTZ - patient volume contracted Monitor BP #Hyperlipidemia-Patient recently prescribed Atorvastatin 20mg daily. She has not yet started this medication, continue to hold #Diabetes Hold Jardiance for now family & pt have refused insulin, discontinued Lantus/SSI #COPD/Asthma Continue Trelegy or formulary equivalent Albuterol PRN #Mental Health-Continue Sertraline 25mg po daily #JOAQUIN on CPAP-Continue CPAP qHS #Atrial flutter - patient currently not on anticoagulation; is in a sinus rhythm DVT prophylaxis: heparin Code: full Updated granddaughter at bedside 06/05. Admission and Anticipated Discharge Date Admission Date: June 04, 2025 Supervising Physician Co-Signing Physician Notes PA Supervision Note: I did not personally see or examine the patient today, but I verified all de león points of TARIQ Stevens's assessment and plan with the following e xceptions/additions: None Subjective Hanna was seen & examined this morning with her family granddaughter at bedside. Patient reports still having abdominal pain this AM. Speech at bedside & patient was tolerating clear liquids well at time of encounter but then had coughing episodes with staff for lunch. She has not had any N/V. Pt was unsure o f her bowel movements when asked. Physical Exam Physical Exam: General: NAD, VS: BP18/67; P63; R28; T38.2C Resp: normal respiratory effort, lungs clear to auscultation CV: RRR, no murmur Abd: normal bowel sounds, tenderness to lower abdominal region. Extremities: no edema Neuro: Alert, oriented to person Skin: intact, no lesions noted Results & Data Results & Data Vital Signs (Past 12 Hours) Vital Signs Temp Pulse Pulse Resp BP Pulse Ox O2 Del Method 06/05/25 12:06 37.8 C H 62 16 154/63 H 100 Room Air 06/05/25 08:34 38.4 C H 69 20 144/70 H 99 Nasal Cannula 06/05/25 07:27 67 06/05/25 04:25 36.4 C L 65 22 141/69 H 98 CPAP 06/05/25 03:00 67 16 97 O2 Flow Rate FiO2 06/05/25 12:06 06/05/25 08:34 2 06/05/25 07:27 06/05/25 04:25 06/05/25 03:00 21 PG Care Time/CCT Total # of Minutes Spent Total Time Spent with Patient: Total time spent is greater than 50% in coordination of care (as documented) at patient's floor/unit and/or counseling patient: Coding Level of Care Code 12104 SUB INP/OBS CARE MIN Diagnoses Nausea, vomiting and diarrhea R11.2; R19.7 Mhejz-ox-byottqn kidney injury N17.9; N18.9 Elevated troponin I level R79.89 Elevated lipase R74.8 Chronic obstructive pulmonary disease, unspecified COPD type J44.9 COPD type: unspecified COPD (5) COPD (chronic obstructive pulmonary disease) COPD type: unspecified COPD Qualified Code(s): J44.9 - Chronic obstructive pulmonary disease, unspecified
[2025-06-05 15:52] LABS: Anion Gap 10.0 (3-11); Calcium 9.1 mg/dl (8.6-10.3); Carbon Dioxide 14.0 mmol/L (21-32); Chloride 120.0 mmol/L (98-107); Potassium 5.6 mmol/L (3.5-5.1); Sodium 144.0 mmol/L (136-145)
[2025-06-05 15:57] LABS: Blood Urea Nitrogen 54.0 mg/dl (6-23); Creatinine Clr Calc Pharmacy 22.1 ml/min; Glucose 85.0 mg/dl (70-99(Fasting))
[2025-06-05] MEDS ORDERED: INSULIN HUMAN REGULAR PER UNIT 10 UNITS in SYRINGE 0 ML IV ONE (16:30)
[2025-06-05] MEDS: DEXTROSE 50% 50 ML SYRINGE IV ONE (16:54)
[2025-06-05] MEDS: INSULIN HUMAN REGULAR PER UNIT 10 UNITS in SYRINGE 9.9 ML IV ONE (16:59)
[2025-06-05] MEDS: PANTOprazole 40 MG/10 ML SYR IV SCH (20:07)
[2025-06-05] MEDS: LOPERAMIDE HCL 2 MG CAP PO PRN (20:07)
[2025-06-05] MEDS: HEPARIN SOD 5,000 UNIT/0.5 ML VIAL SQ SCH (20:07)
[2025-06-05] MEDS: MELATONIN 3 MG TAB PO PRN (20:07)
[2025-06-05 22:18] LABS: Anion Gap 9.0 (3-11); Blood Urea Nitrogen 47.0 mg/dl (6-23); Calcium 8.9 mg/dl (8.6-10.3); Carbon Dioxide 16.0 mmol/L (21-32); Chloride 116.0 mmol/L (98-107); Creatinine Clr Calc Pharmacy 21.8 ml/min; Glucose 111.0 mg/dl (70-99(Fasting)); Potassium 4.3 mmol/L (3.5-5.1); Sodium 141.0 mmol/L (136-145)
--- NOTE | 2025-06-05 22:53 | Electrocardiogram Report ---
Test Reason : Blood Pressure : */* mmHG Vent. Rate : 67 BPM Atrial Rate : 67 BPM P-R Int : 246 ms QRS Dur : 108 ms QT Int : 394 ms P-R-T Axes : 13 -52 60 degrees QTcB Int : 416 ms Sinus rhythm with 1st degree A-V block Right bundle branch block Left anterior fascicular block Bifascicular block Cannot rule out Inferior infarct No previous ECGs available Confirmed by Mika Tiwari ([id number]) on 06/05/2025 10:52:46 PM Referred By: REFERRED SELF Confirmed By: Mika Tiwari
[2025-06-06 06:38] LABS: Hematocrit (blood only) 36.8 % (37.0-47.0); Hemoglobin 10.8 g/dL (12.0-16.0); Mean Corpuscular Hemoglobin 27.2 pg (25.0-34.0); Mean Corpuscular Volume 92.7 fL (80.0-100.0); Platelet Count 161 K/uL (130-400); RDW Standard Deviation 51.6 fL (36.4-46.3); Red Blood Count 3.97 M/uL (4.20-5.40); White Blood Count 6.61 K/ul (4.8-10.8)
[2025-06-06 07:09] LABS: Anion Gap 7.0 (3-11); Blood Urea Nitrogen 54.0 mg/dl (6-23); Calcium 8.8 mg/dl (8.6-10.3); Carbon Dioxide 20.0 mmol/L (21-32); Chloride 116.0 mmol/L (98-107); Creatinine Clr Calc Pharmacy 18.3 ml/min; Glucose 74.0 mg/dl (70-99(Fasting)); Magnesium 2.3 mg/dl (1.7-2.4); Potassium 5.0 mmol/L (3.5-5.1); Sodium 143.0 mmol/L (136-145)
--- NOTE | 2025-06-06 10:19 | Hospitalist Progress Note ---
Date of Service June 06, 2025 Assessment & Plan (1) Nausea, vomiting and diarrhea: (2) Hnrox-sh-nmhbifp kidney injury: (3) Elevated troponin I level: (4) Elevated lipase: (5) COPD (chronic obstructive pulmonary disease): Plan 74yo female presenting with one day of watery diarrhea, nausea and vomiting on 06/04/2025. #Nausea/vomiting/diarrhea Was in contact with family member with similar symptoms. Stool Biofire + for Norovirus & Rotavirus. C diff gene positive but toxin negative --> defer PO abx at this time given neg toxin. Supportive care w/ IVF, antiemetics, & tylenol for pain/fever. Add PPI IV BID Isolation precautions in place. Will require PT/OT when symptoms subside, per granddaughter does not walk but is able to transfer to wheel chair by pivoting on own most times. #Acute kidney injury on CKD stage III/hyperkalemia patient with CKD-III, last Cr on record=1.78, suspect baseline? Creatinine continued to up trend to 2.37, K elevated at 5.6 on 06/05 Sodium bicarb started & increased to 150ml/hr, additional calcium gluconate given, & 10 units of IV insulin. Repeat BMP on 06/06 with improvement in CO2 to 20, last PM was 16. Hyperkalemia resolved (5.0). Creatinine uptrended to 2.86 and BUN 54 IV site lost- obtained verbal consent from granddaughter via phone on 06/06 for PICC line placement - once placed, resume IVF w/ sodium bicarb Per PCP, is being referred to nephrology on outpatient basis. Hold nephrotoxic agents & renally dose where needed. #NAGMA Secondary to diarrheal losses of bicarbonate Continue to monitor BMP - labs appear worse 06/05 PM --> Cl 120; CO2 14. sodium bicarb as above #Dysphagia noticed by staff to be coughing w/ water intake, pt without mention of symptoms. Speech eval 06/05 - tolerated water/pudding/crackers fine --> upon lunch w/ staff at bedside patient began coughing w/ thin liquids speech following. Swallow study set for 06/08. ST evaluated 06/06, pt did well with bedside swallow assessment-recommended advancing to pureed/thin. Will start with CLD d/t recent GI illness for now, carb consistent If tolerating, can advance tomorrow 06/07 to pureed. Will need supervision while eating as she is impulsive and high aspiration risk. #Elevated troponin Trop trended upward to 24.2 but has since down trended to 22.7 EKG was without ischemic changes; no reports of CP. #Hypertension Continue Nifedipine 30mg po daily Hold HCTZ - patient volume contracted Monitor BP #Hyperlipidemia-Patient recently prescribed Atorvastatin 20mg daily. She has not yet started this medication, continue to hold #Diabetes Hold Jardiance for now family & pt have refused insulin, discontinued Lantus/SSI #COPD/Asthma Continue Trelegy or formulary equivalent Albuterol PRN #Mental Health-Continue Sertraline 25mg po daily #JOAQUIN on CPAP-Continue CPAP qHS #Atrial flutter - patient currently not on anticoagulation; is in a sinus rhythm DVT prophylaxis: heparin Code: full Updated granddaughter via phone on 06/06. Trend labs in AM. Anticipate ready for therapy eval tomorrow 06/07. Admission and Anticipated Discharge Date Admission Date: June 04, 2025 Supervising Physician Co-Signing Physician Notes PA Supervision Note: I did not personally see or examine the patient today, but I verified all de león points of TARIQ Parisi's assessment and plan with the following exceptions/additions: BPs became softer later in the day-hold nifedipine for SBP less than 110 for tomorrow. Patient is tolerating clear liquids with some cough-Will advance to pured diet as she is asking for regular food. Will follow-up on 1800 BMP when available Subjective Jenna is a pleasant 74 yo F who was seen today on daily rounds. She remains hospitalized with n/v/d, generalized weakness, and CHRISTY on CKD. Per nursing, she has not had any bouts of diarrhea or vomiting this AM. Pt endorses some abdominal discomfort but her ability to communicate is limited. She requests some ice water, but is currently ice chips and meds only due to concerns with dysphagia. She is for swallow study 06/08. Pt lost IV access overnight and has not had fluids for several hours. Review of Systems 2 Review of Systems: All systems reviewed and are unremarkable except as noted in HPI and below. Ability to obtain ROS from patient is limited due to her communication barrier. +abd pain. Physical Exam 2 Physical Exam: GENERAL: 74 yo well-nourished AAF. No distress. HENT: Dry mucous membranes. LUNGS: Nonlabored. Clear to auscultation bilaterally w/o W/R/R. CARDIOVASCULAR: Regular rate and rhythm. ABDOMEN: Soft, non-tender and non-distended. BS normoactive x 4 quad. EXTREMITIES: No edema. Non-tender. Peripheral pulses +2/4. PSYCHIATRIC: Cooperative. Appropriate mood and affect. SKIN: Warm, dry, intact. No rashes or lesions. Results & Data Results & Data Vital Signs (Past 12 Hours) Vital Signs Temp Pulse Pulse Resp BP BP Pulse Ox 06/06/25 07:45 36.5 C 66 24 124/75 95 06/06/25 03:42 37.0 C 61 18 110/62 97 06/06/25 03:05 59 L 21 92 06/06/25 00:00 68 06/05/25 22:57 38.1 C H 64 18 107/66 95 06/05/25 22:47 69 21 92 O2 Del Method FiO2 06/06/25 07:45 Nasal Cannula 06/06/25 03:42 CPAP 06/06/25 03:05 21 06/06/25 00:00 06/05/25 22:57 CPAP 06/05/25 22:47 21 Laboratory Results 06/06/25 05:57 06/06/25 05:57 PG Care Time/CCT Total # of Minutes Spent Total Time Spent with Patient: Total time spent is greater than 50% in coordination of care (as documented) at patient's floor/unit and/or counseling patient: 40 minutes Coding Level of Care Code 01371 SUB INP/OBS CARE 2/35MIN Diagnoses Nausea, vomiting and diarrhea R11.2; R19.7 Vziej-gx-mmwygzn kidney injury N17.9; N18.9 Elevated troponin I level R79.89 Elevated lipase R74.8 Chronic obstructive pulmonary disease, unspecified COPD type J44.9 COPD type: unspecified COPD (5) COPD (chronic obstructive pulmonary disease) COPD type: unspecified COPD Qualified Code(s): J44.9 - Chronic obstructive pulmonary disease, unspecified
[2025-06-06] MEDS: ACETAMINOPHEN 325 MG TAB PO PRN (10:45)
--- NOTE | 2025-06-06 19:07 | XRay Report ---
EXAM: Portable AP chest radiograph TECHNIQUE: AP portable radiograph of the chest was obtained. INDICATION: Shortness of breath Comparison: Chest radiograph June 04, 2025 FINDINGS: LINES and TUBES: Right PICC with tip projecting over the right atrium of the heart. CARDIOVASCULAR: Cardiac silhouette is stable enlarged in size. Atherosclerosis of the thoracic aorta. LUNGS/PLEURA: Mild interstitial edema and chronic interstitial lung changes appear similar to the previous radiograph. Bibasilar atelectasis. No significant pleural fluid. No discernible pneumothorax. OSSEOUS/OTHER: No displaced acute osseous process identified. Unchanged elevation of the left hemidiaphragm. IMPRESSION: Right PICC with tip projecting over the right atrium of the heart. Otherwise no significant change from previous radiograph dated June 04, 2025. Electronically signed by Brennan Castaneda 06-06-2025 7:07 PM
[2025-06-06] MEDS: MENTHOL-ZINC OXIDE 360 APPLN/120 GM TUBE EXT SCH (21:12)
[2025-06-06 22:16] LABS: Anion Gap 8.0 (3-11); Blood Urea Nitrogen 47.0 mg/dl (6-23); Calcium 8.2 mg/dl (8.6-10.3); Carbon Dioxide 23.0 mmol/L (21-32); Chloride 106.0 mmol/L (98-107); Creatinine Clr Calc Pharmacy 19.5 ml/min; Glucose 133.0 mg/dl (70-99(Fasting)); Potassium 4.1 mmol/L (3.5-5.1); Sodium 137.0 mmol/L (136-145)
--- NOTE | 2025-06-07 08:06 | XRay Report ---
EXAM: XR chest 1V portable CLINICAL HISTORY: PICC TECHNIQUE: An X-ray image of the chest is obtained in AP projection. COMPARISON: CR dated 06/06/2025. FINDINGS: Pulmonary Parenchyma: Right CVP line in a proper place. Chest leads. Bilateral lung airspace infiltrates obscuring both CP angles suggestive of pulmonary edema. In comparison with patient's prior study there is Slight interval improvement noted Heart and Mediastinum: Cardiomegaly Noted. No mediastinal widening or masses. No hilar or mediastinal lymphadenopathy. Bony Thorax: Bony thorax appears intact without fractures or deformities. Soft Tissues: Soft tissues overlying the chest wall are unremarkable. IMPRESSION: 1. Right central line in a proper position at cavoatrial junction, previously at the atrium. 2. Bilateral lung airspace infiltrates obscuring both CP angles suggestive of pulmonary edema. In comparison with patient's prior study there is Slight interval improvement noted. Electronically signed by Raghav Cantrell 06-07-2025 08:05 AM
[2025-06-07 09:02] LABS: Hematocrit (blood only) 30.9 % (37.0-47.0); Hemoglobin 9.6 g/dL (12.0-16.0); Immature Granulocytes # (auto) 0.01 K/uL (0.01-0.20); Immature Granulocytes % (auto) 0.2 %; Mean Corpuscular Hemoglobin 27.6 pg (25.0-34.0); Mean Corpuscular Volume 88.8 fL (80.0-100.0); Platelet Count 148 K/uL (130-400); RDW Standard Deviation 48.8 fL (36.4-46.3); Red Blood Count 3.48 M/uL (4.20-5.40); White Blood Count 4.69 K/ul (4.8-10.8)
[2025-06-07 09:21] LABS: Anion Gap 5.0 (3-11); Blood Urea Nitrogen 44.0 mg/dl (6-23); Calcium 7.9 mg/dl (8.6-10.3); Carbon Dioxide 31.0 mmol/L (21-32); Chloride 102.0 mmol/L (98-107); Creatinine Clr Calc Pharmacy 21.7 ml/min; Glucose 112.0 mg/dl (70-99(Fasting)); Magnesium 1.9 mg/dl (1.7-2.4); Potassium 3.8 mmol/L (3.5-5.1); Sodium 138.0 mmol/L (136-145)
[2025-06-07] MEDS: LACTATED RINGER'S 1,000 ML IV SCH (11:31)
[2025-06-07] MEDS: MAGNESIUM SULFATE / D5W 1 GM/100 ML BAG IV ONE (11:31)
--- NOTE | 2025-06-07 18:34 | Hospitalist Progress Note ---
Date of Service June 07, 2025 Assessment & Plan (1) Otcwh-ln-uapyapu kidney injury: (2) Rotavirus enteritis: (3) Gastroenteritis due to norovirus: (4) Hyperkalemia: (5) Metabolic acidosis, NAG, bicarbonate losses: Plan This patient is a 74yo female with a history of HTN, HLD, mild aortic stenosis, moderate MR, DM2 with neuropathy, CKD stage III, iron deficiency and folate deficiency anemia as well as anemia of chronic kidney disease, gout, allergies, COPD/asthma, chronic respiratory failure with hypoxemia depression, paroxysmal atrial flutter not on anticoagulation, JOAQUIN on CPAP, autism spectrum disorder with intellectual impairment, sarcoidosis, presenting with one day of profuse watery diarrhea, nausea, and vomiting on 06/04/2025. Found to have both norovirus and rotavirus on stool PCR, as well as significant acute kidney injury, hyperkalemia, and non-anion gap metabolic acidosis from GI losses. #Nausea/vomiting/diarrhea/rotavirus/norovirus-she is also C. difficile gene positive but toxin negative. Was in contact with family member with similar symptoms. Diarrhea is starting to slow down but her bottom is quite excoriated and raw from multiple bowel movements. Was having fevers which now seem to be improving. Renal failure and electrolyte abnormalities improving. PICC line now in place due to poor IV access and multiple IVs failing - Continue IV fluids but changed to LR at 80 mL/h from sodium bicarbonate drip - Continue antiemetics as needed, tylenol for pain/fever - Continue Protonix but changed to p.o. once daily - Continue Imodium as needed - Isolation precautions in place. - Wound care consult for wounds on bottom - Place fecal management system/rectal tube to help protect skin - Have since advance diet to pured and she is tolerating this - Follow CBC, BMP, magnesium and keep electrolytes replete-give magnesium 1 g IV x 1 #Acute kidney injury on CKD stage III/hyperkalemia/none anion gap metabolic acidosis-baseline creatinine is possibly 1.78 as these are the only labs we have prior to admission. Creatinine peaked at 2.85 due to hypovolemia from gastroenteritis and is now improving down to 2.4. With hyperkalemia now resolved after repeat treatments of insulin and D50, IV calcium gluconate, and a sodium bicarbonate drip. Serum bicarbonate was quite low at 14 without anion gap from bicarbonate losses and stool and now increased to 31 after sodium bicarbonate drip -Discontinue sodium bicarbonate drip -Per PCP, is being referred to nephrology on outpatient basis. -Hold nephrotoxic agents & renally dose where needed - Start LR at 80 mL/h - Follow BMP in the a.m. - Check UA given development of dysuria on 06/07-UA negative for infection- burning with urination may be due to raw skin in the perineum #Dysphagia-noticed by staff to be coughing w/ water intake, pt without mention of symptoms. Speech eval 06/05 - tolerated water/pudding/crackers fine --> upon lunch w/ staff at bedside patient began coughing w/ thin liquids speech following. ST evaluated 06/06, pt did well with bedside swallow assessment-recommended advancing to pureed/thin. -Swallow study set for 06/08. -Aspiration risk #Elevated troponin/myocardial demand ischemia-Trop trended upward to 24.2 but has since down trended to 22.7. EKG was without ischemic changes; no reports of CP. No events on telemetry. Likely myocardial demand ischemia in the setting of acute kidney injury and acute illness. Recent echocardiogram on 06/03 with preserved EF, mild aortic stenosis, moderate MR -Continue to monitor on telemetry #Hypertension-BPs are controlled -Continue Nifedipine 30mg po daily -Continue to hold home HCTZ - patient volume contracted -Monitor BP #Hyperlipidemia-Patient recently prescribed Atorvastatin 20mg daily. She has not yet started this medication, continue to hold # DM2 with peripheral neuropathy-blood sugars here have been well-controlled in the 90s to 120s on BSG's. Recent HgbA1c only 5.8% -Hold Jardiance for now -No need for insulin - Continue home gabapentin which is okay for renal function at this current dose #COPD/Asthma/chronic hypoxic respiratory failure on 2L NC/JOAQUIN on CPAP -Continue Trelegy or formulary equivalent -Albuterol PRN - Continue supplemental O2 and CPAP at bedtime #Anemia-has history of iron, folate deficiencies, and anemia of chronic disease. Hgb mildly low from baseline but likely hemodilutional at 9.6. Normocytic - Follow CBC here and as an outpatient #Depression/anxiety-Continue Sertraline 25mg po daily #Paroxysmal atrial flutter - patient currently not on anticoagulation or beta- blockers as is usually rate controlled when in atrial flutter; is in a sinus rhythm DVT prophylaxis: heparin Disposition-continued stay, PT OT consults pending. Patient can typically stand and pivot to a wheelchair at baseline and lives with her granddaughter Admission and Anticipated Discharge Date Admission Date: June 04, 2025 Subjective Patient continues to have loose yellow stools throughout the day and nursing notes that her bottom is becoming excoriated and raw. A fecal management tube was placed. Her granddaughter is present and states that the patient has been complaining of burning with urination. Otherwise, the patient is pleasantly confused. Does not quite understand why she is in the hospital. Telemetry with first-degree AV block, PVCs, rates in the 60s to 80s Physical Exam Constitutional: WD/WN, vitals as above Respiratory: normal respiratory effort, lungs clear to auscultation Cardiovascular: RRR, no murmur, no edema Gastrointestinal (Abdomen): Inspection/Auscultation: abdomen normal to inspection and normal bowel sounds; abdomen not distended Percussion/Palpation: + abdomen tender (Mild and mid abdomen without guarding or rebound) and abdomen soft; no guarding Skin: Buttocks with several areas of superficial abrasions with powder in place and barrier creams Psychiatric: Orientation: alert, oriented to person and cooperative Results & Data Results & Data Vital Signs (Past 12 Hours) Vital Signs Temp Pulse Resp BP Pulse Ox O2 Del Method O2 Flow Rate 06/07/25 11:56 37.7 C H 82 20 118/73 98 Nasal Cannula 2 06/07/25 08:00 Nasal Cannula 2 06/07/25 07:46 36.7 C 68 20 124/71 95 Room Air, CPAP 06/07/25 06:56 Nasal Cannula 2 Laboratory Results CBC, BMP, magnesium reviewed PG Care Time/CCT Total # of Minutes Spent Total Time Spent with Patient: Total time spent is greater than 50% in coordination of care (as documented) at patient's floor/unit and/or counseling patient: Coding Level of Care Code 60444 SUB INP/OBS CARE 2/35MIN Diagnoses Ctncq-mn-znuftgz kidney injury N17.9; N18.9 Rotavirus enteritis A08.0 Gastroenteritis due to norovirus A08.11 Hyperkalemia E87.5 Metabolic acidosis, NAG, bicarbonate losses E87.20
[2025-06-07 18:47] LABS: Appearance Urine Clear (Clear); Bacteria Urine Automated None Seen (None Seen); Epithelial Cell Urine Auto 0-2 /hpf (0-2); Glucose Urine UA Negative (Negative); RBC Urine Automated 0-2 /hpf (0-2); WBC Urine Automated 0-5 /hpf (0-5)
[2025-06-08] MEDS: ONDANSETRON INJ 2 MG/ML 2 ML VIAL IV PRN (04:42)
--- NOTE | 2025-06-08 11:06 | Fluoroscopy Report ---
FL video swallow CLINICAL HISTORY: assess for aspiration. TECHNIQUE: Video fluoroscopic evaluation of swallowing was performed in the AP and lateral projection s by the speech pathology staff. The patient is fed nectar-thick and thin liquid barium, a barium coa lucio wafer, and barium pudding. FLUOROSCOPY TIME: 1 minute 28 seconds. COMPARISON: None FINDINGS: There is aspiration with large swallows of thin and thick liquid. IMPRESSION: Aspiration with liquid. ACT 112: Negative or not required by law. Electronically signed by: Javier Hanson M.D. 06/08/2025 11:05 AM
[2025-06-08 11:19] LABS: Hematocrit (blood only) 32.0 % (37.0-47.0); Hemoglobin 9.6 g/dL (12.0-16.0); Mean Corpuscular Hemoglobin 27.2 pg (25.0-34.0); Mean Corpuscular Volume 90.7 fL (80.0-100.0); Platelet Count 141 K/uL (130-400); RDW Standard Deviation 48.8 fL (36.4-46.3); Red Blood Count 3.53 M/uL (4.20-5.40); White Blood Count 4.79 K/ul (4.8-10.8)
[2025-06-08 11:24] LABS: Anion Gap 4.0 (3-11); Blood Urea Nitrogen 34.0 mg/dl (6-23); Calcium 8.3 mg/dl (8.6-10.3); Carbon Dioxide 30.0 mmol/L (21-32); Chloride 106.0 mmol/L (98-107); Creatinine Clr Calc Pharmacy 24.1 ml/min; Glucose 87.0 mg/dl (70-99(Fasting)); Magnesium 2.2 mg/dl (1.7-2.4); Potassium 4.1 mmol/L (3.5-5.1); Sodium 140.0 mmol/L (136-145)
[2025-06-08 12:17] LABS: ALC (manual) 1.63 K/uL (1.2-3.4); ANC (manual) 2.59 K/uL (1.4-6.5); Large Granular Lymph # (manua 0.81 K/uL; Large Granular Lymph % (manual) 17 %
--- NOTE | 2025-06-08 13:19 | Hospitalist Progress Note ---
Date of Service June 08, 2025 Assessment & Plan (1) Bzkpk-tp-kyksotd kidney injury: (2) Rotavirus enteritis: (3) Gastroenteritis due to norovirus: (4) Hyperkalemia: (5) Metabolic acidosis, NAG, bicarbonate losses: Plan This patient is a 74yo female with a history of HTN, HLD, mild aortic stenosis, moderate MR, DM2 with neuropathy, CKD stage III, iron deficiency and folate deficiency anemia as well as anemia of chronic kidney disease, gout, allergies, COPD/asthma, chronic respiratory failure with hypoxemia depression, paroxysmal atrial flutter not on anticoagulation, JOAQUIN on CPAP, autism spectrum disorder with intellectual impairment, sarcoidosis, presenting with one day of profuse watery diarrhea, nausea, and vomiting on 06/04/2025. Found to have both norovirus and rotavirus on stool PCR, as well as significant acute kidney injury, hyperkalemia, and non-anion gap metabolic acidosis from GI losses. #Nausea/vomiting/diarrhea/rotavirus/norovirus Was in contact with family member with similar symptoms. Diarrhea is starting to slow down but her bottom is quite excoriated and raw from multiple bowel movements. Renal failure and electrolyte abnormalities continue to improve. PICC line has to be placed secondary to multiple IV's failing. s/p Sodium bicarbonate drip, now on LR @ 50ml/hr, once tolerating PO intake well can d/c IVF Continue PPI daily Continue Imodium prn for diarrhea & zofran prn for n/v Added Metamucil to help reduce diarrhea Wound care consulted --> recs include clean wound areas w/ normal saline & dry thoroughly. Dust w/ stoma powder & apply zinc barrier cream. reposition every 2 hours. For b/l breast, groin/abd folds dry after cleansing & apply nystatin powder. Wound care follow up set for 06/22 @ 1PM. Continue to monitor labs while inpatient. #Acute kidney injury on CKD stage III/hyperkalemia/none anion gap metabolic acidosis baseline creatinine is possibly 1.78 as these are the only labs we have prior to admission. Creatinine peaked at 2.85 due to hypovolemia from gastroenteritis and is now improving down to 2.18. hyperkalemia now resolved after repeat treatments of insulin and D50, IV calcium gluconate, and a sodium bicarbonate drip. Serum bicarbonate was quite low at 14 without anion gap from bicarbonate losses and stool and now increased to 31 after sodium bicarbonate drip Per PCP, is being referred to nephrology on outpatient basis. Hold nephrotoxic agents & renally dose where needed #Dysphagia noticed by staff to be coughing w/ water intake, pt without mention of symptoms. Speech eval 06/05 - tolerated water/pudding/crackers fine --> upon lunch w/ staff at bedside patient began coughing w/ thin liquids Swallow study performed 06/08 --> okay for thin liquids w/ controlled cup & minced/moist diet, diet advanced. Aspiration risk #Elevated troponin myocardial demand ischemia Trop trended upward to 24.2 but has since down trended to 22.7. EKG was without ischemic changes; no reports of CP. No events on telemetry. Likely myocardial demand ischemia in the setting of acute kidney injury and acute illness. Recent echocardiogram on 06/03 with preserved EF, mild aortic stenosis, moderate MR #Hypertension BPs are controlled Continue Nifedipine 30mg po daily Continue to hold home HCTZ - patient volume contracted Monitor BP #Hyperlipidemia-Patient recently prescribed Atorvastatin 20mg daily. She has not yet started this medication, continue to hold # DM2 with peripheral neuropathy blood sugars here have been well-controlled in the 90s to 120s on BSG's. Recent HgbA1c only 5.8% Hold Jardiance for now No need for insulin Continue home gabapentin which is okay for renal function at this current dose #COPD/Asthma/chronic hypoxic respiratory failure on 2L NC/JOAQUIN on CPAP Continue Trelegy or formulary equivalent Albuterol PRN Continue supplemental O2 and CPAP at bedtime #Anemia has history of iron, folate deficiencies, and anemia of chronic disease. Hgb mildly low from baseline but likely hemodilutional at 9.6. Normocytic Follow CBC here and as an outpatient #Depression/anxiety-Continue Sertraline 25mg po daily #Paroxysmal atrial flutter - patient currently not on anticoagulation or beta-blockers as is usually rate controlled when in atrial flutter; is in a sinus rhythm DVT prophylaxis: heparin Disposition-continued stay, PT OT consults recommending rehab but per family will likely elect to take home. CM following. Hopeful discharge anticipated in the upcoming days. Updated granddaughter 06/08. Admission and Anticipated Discharge Date Admission Date: June 04, 2025 Supervising Physician Co-Signing Physician Notes The patient was not seen by me. The chart was reviewed. Case discussed with TARIQ Salmon. Agree with assessment and plan Subjective Jenna was seen & examined this morning. At time of encounter, she denied any complaints. Physical Exam Physical Exam: General: NAD, VS: BP 169/85; P71; T36.6C Resp: normal respiratory effort Abd: soft, +BS, no tenderness to palpation Extremities: no edema Neuro: alert, oriented to person, cooperative Skin: intact, no lesions noted Results & Data Results & Data Vital Signs (Past 12 Hours) Vital Signs Temp Pulse Pulse Resp BP Pulse Ox O2 Del Method 06/08/25 11:21 36.7 C 65 16 136/88 100 Nasal Cannula 06/08/25 08:01 36.9 C 67 16 126/76 98 Nasal Cannula 06/08/25 07:17 65 06/08/25 04:00 36.5 C 70 18 144/78 H 100 CPAP 06/08/25 03:28 74 19 98 O2 Flow Rate 06/08/25 11:21 4 06/08/25 08:01 2 06/08/25 07:17 06/08/25 04:00 06/08/25 03:28 PG Care Time/CCT Total # of Minutes Spent Total Time Spent with Patient: Total time spent is greater than 50% in coordination of care (as documented) at patient's floor/unit and/or counseling patient: Coding Level of Care Code 83818 SUB INP/OBS CARE 2/35MIN Diagnoses [id number]-pm-[id number] kidney injury N17.9; N18.9 Rotavirus enteritis A08.0 Gastroenteritis due to norovirus A08.11 Hyperkalemia E87.5 Metabolic acidosis, NAG, bicarbonate losses E87.20
[2025-06-08] MEDS: PSYLLIUM HUSK 4GM PACKET PO SCH (21:07)
[2025-06-09 04:55] VITALS: TEMP 97.7
[2025-06-09] MEDS: ALBUTEROL 0.083% NEBU SOLN 3 ML VIAL INH PRN (09:23)
[2025-06-09 09:24] VITALS: RESP 20; O2SAT 94
[2025-06-09 12:54] LABS: Hematocrit (blood only) 32.7 % (37.0-47.0); Hemoglobin 9.6 g/dL (12.0-16.0); Mean Corpuscular Hemoglobin 26.7 pg (25.0-34.0); Mean Corpuscular Volume 91.1 fL (80.0-100.0); Platelet Count 145 K/uL (130-400); RDW Standard Deviation 48.4 fL (36.4-46.3); Red Blood Count 3.59 M/uL (4.20-5.40); White Blood Count 5.13 K/ul (4.8-10.8)
[2025-06-09 13:04] LABS: Anion Gap 6.0 (3-11); Blood Urea Nitrogen 27.0 mg/dl (6-23); Calcium 8.4 mg/dl (8.6-10.3); Carbon Dioxide 28.0 mmol/L (21-32); Chloride 107.0 mmol/L (98-107); Creatinine Clr Calc Pharmacy 28.1 ml/min; Glucose 76.0 mg/dl (70-99(Fasting)); Magnesium 1.9 mg/dl (1.7-2.4); Potassium 4.1 mmol/L (3.5-5.1); Sodium 141.0 mmol/L (136-145)
--- NOTE | 2025-06-09 14:33 | Discharge Summary ---
Discharge Summary Date of Service June 09, 2025 Principal Dx & Hospital Course #1 = Principal Diagnosis (1) Uwwoi-fn-jvfhegf kidney injury: (2) Rotavirus enteritis: (3) Gastroenteritis due to norovirus: (4) Hyperkalemia: (5) Metabolic acidosis, NAG, bicarbonate losses: Plan This patient is a 74yo female with a history of HTN, HLD, mild aortic stenosis, moderate MR, DM2 with neuropathy, CKD stage III, iron deficiency and folate deficiency anemia as well as anemia of chronic kidney disease, gout, allergies, COPD/asthma, chronic respiratory failure with hypoxemia depression, paroxysmal atrial flutter not on anticoagulation, JOAQUIN on CPAP, autism spectrum disorder with intellectual impairment, sarcoidosis, presenting with one day of profuse watery diarrhea, nausea, and vomiting on 06/04/2025. Found to have both norov irus and rotavirus on stool PCR, as well as significant acute kidney injury, hyperkalemia, and non-anion gap metabolic acidosis from GI losses. #Nausea| vomiting| diarrhea| rotavirus| norovirus - improved Was in contact with family member with similar symptoms. Diarrhea has mostly resolved. Renal failure and electrolyte abnormalities continue to improve. PICC line has to be placed secondary to multiple IV's failing. s/p Sodium bicarbonate drip & LR, tolerating PO intake prior to dc. Continue Metamucil daily & Imodium prn on discharge. Wound care consulted --> recs include clean wound areas w/ normal saline & dry thoroughly. Dust w/ stoma powder & apply zinc barrier cream. reposition every 2 hours. For b/l breast, groin/abd folds dry after cleansing & apply nystatin powder. Wound care follow up set for 06/22 @ 1PM. #Acute kidney injury on CKD stage III| hyperkalemia | non - anion gap metabolic acidosis - resolved baseline creatinine is possibly 1.78 as these are the only labs we have prior to admission. Creatinine peaked at 2.85 due to hypovolemia from gastroenteritis and is now improving down to 1.87 hyperkalemia now resolved after repeat treatments of insulin and D50, IV calcium gluconate, and a sodium bicarbonate drip. Serum bicarbonate was quite low at 14 without anion gap from bicarbonate losses and stool and now increased to 31 after sodium bicarbonate drip Per PCP, is being referred to nephrology on outpatient basis. #Dysphagia noticed by staff to be coughing w/ water intake, pt without mention of symptoms. Speech eval 06/05 - tolerated water/pudding/crackers fine --> upon lunch w/ staff at bedside patient began coughing w/ thin liquids Swallow study performed 06/08 --> okay for thin liquids w/ controlled cup & minced/moist diet- continue this diet on discharge. #Elevated troponin - resolved myocardial demand ischemia Trop trended upward to 24.2 but has since down trended to 22.7. EKG was without ischemic changes; no reports of CP. No events on telemetry. Likely myocardial demand ischemia in the setting of acute kidney injury and acute illness. Recent echocardiogram on 06/03 with preserved EF, mild aortic stenosis, moderate MR #Hypertension BPs are controlled Continue Nifedipine 30mg po daily Can resume home HCTZ starting 06/09 now that re-hyddration has occurred & she is tolerating PO intake. #Hyperlipidemia-Patient recently prescribed Atorvastatin 20mg daily. She has not yet started this medication, discuss w/ PCP on follow up when to start. # DM2 with peripheral neuropathy blood sugars here have been well-controlled in the 90s to 120s on BSG's. Recent HgbA1c only 5.8% resume home jardiance on discharge. Continue home gabapentin which is okay for renal function at this current dose #COPD| Asthma | chronic hypoxic respiratory failure on 2L NC | JOAQUIN on CPAP Continue Trelegy or formulary equivalent Continue supplemental O2 and CPAP at bedtime #Anemia has history of iron, folate deficiencies, and anemia of chronic disease. Hgb mildly low from baseline but likely hemodilutional at 9.6. Normocytic Follow CBC here and as an outpatient #Depression/anxiety-Continue Sertraline 25mg po daily #Paroxysmal atrial flutter - patient currently not on anticoagulation or beta- blockers as is usually rate controlled when in atrial flutter; is in a sinus rhythm Patient being discharged home on 06/09, updated grand-daughter w/ discharge planning. Admission HPI Per Admitting Provider Pati Gamez is a 74yo female with history of Diabetes, Hypertension, COPD, CKD- III and Autism spectrum disorder presenting with her granddaughters with complaint of nausea, vomiting and diarrhea. Patient has had one day of diarrhea - 10+ episodes prior to arrival and 3+ episodes since being in the ER. Watery, mucoid and non-bloody. Some abdominal pain as well. Also with nausea and several episodes of non-bloody diarrhea. Patient has been in contact with family member with similar symptoms. No additional complaints at this time - denies fever, chills, chest pain, cough, SOB. Has had some decreased UOP In the ER patient is afebrile, HD stable ER Course: NSS x 1L Tylenol 1gm Zofran 4mg IV Discharge Exam General: NAD, VS: BP 145/76; P80; R20; T36.5C Resp: normal respiratory effort Extremities: no edema Neuro: Alert, oriented to person Skin: intact, no lesions noted Discharge Plan Discharge Items Patient Disposition: Home - Self-Care Reason For Visit: NAUSEA, VOMITING, DIARRHEA Discharge Diagnosis: Gastroenteritis Activity: Resume your previous activity Non-emergency contact: Primary Care Provider Call non-emergency contact if: you have any medication questions and your symptoms worsen Follow-up/Referrals: Beena Berman MD [Primary Care Provider] - 06/16/25 1:00 pm Diet: Carb Consistent or DM2 Diet Texture: Mechanical soft (ground) Addtl Attending Provider Instructions: Ms. Gamez, You were recently hospitalized secondary to diarrhea, nausea, and vomiting. You were found to have two viral GI infections and were treated supportively. Your symptoms have improved prior to discharge and you are stable to return home. While hospitalized, you also underwent a speech study and you should be on a minced and moist diet to prevent aspiration at home. Medications: Your medication list has been reviewed and reconciled upon discharge to ensure accuracy and continuity of care. An updated list of all your medications is included with your hospital discharge paperwork. Please review this list closely, and make note of any changes. Two over the counter medications that will be beneficial for you include 1 dose of Metamucil daily to help bind your stool together. Please use Imodium 2mg every 4 hours as needed for recurrent diarrhea. For the buttocks area, please clean daily with normal saline and dry thoroughly. Dust with stoma powder and then apply zinc barrier cream. Apply every 2 hours with repositioning and as needed if soiled. To the bilateral breast, groin, and abdominal folds, dry thoroughly after cleansing, apply nystatin powder twice daily. Wound Center appointment is on 06/22/2025 at 1pm. Address is [address] [place] [address], their phone number is [phone] Take your medications as instructed; do not skip a dose of your medicines. Make sure all of your doctors know every medicine you are taking (including ozjp-onx-iwkwbax medicines, vitamins, and supplements). Call your primary care provider before taking any new medicines (including over- the-counter medicines, vitamins, and supplements), because some of these may interact with your current medications, or may make your symptoms worse. Tell your primary care provider if you cannot afford your medications. Activity: You can do normal everyday activities as your body allows. Take rest breaks if you feel tired. Do not overexert. Stop activity if you have pain, shortness of breath or feel dizzy. Follow-up appointments: Make an appointment with your primary care physician within one week of discharge. A copy of this summary will be sent to them. Every time you see your primary care physician, or any other doctor, bring your medication list, and a list of questions. CONTACT YOUR PRIMARY CARE PROVIDER if you experience any of the following: Shortness of breath or difficulty breathing Fevers or chills Feeling tired with normal activity or experiencing dizziness or fainting Difficulty following your treatment plan, or difficulty taking medications CALL 911 OR GO TO THE EMERGENCY DEPARTMENT if you experience any of the following: Severe abdominal pain or nausea/vomiting Severe chest pain, or chest pain that radiates (moves) to your jaw or arm Sudden, severe shortness of breath or difficulty breathing Thank you for allowing us to participate in your care. Pending Studies at Discharge: No Stand-Alone Forms: My [facility] [employer], Smoking Cessation Medications and DC Order Prescriptions: Continued montelukast 10 mg tablet 10 mg PO DAILY allopurinol 100 mg tablet 100 mg PO DAILY aspirin 81 mg tablet 81 mg PO DAILY Jardiance 10 mg tablet 10 mg PO DAILY ferrous sulfate [FeroSul] 325 mg (65 mg iron) tablet 325 mg PO DAILY folic acid 1 mg tablet 1 mg PO DAILY gabapentin 100 mg capsule 100 mg PO TID Rx Instructions: for pain hydrochlorothiazide 12.5 mg tablet 12.5 mg PO DAILY Rx Instructions: for BP/fluid retention melatonin 3 mg tablet 3 mg PO HS PRN (Reason: Sleep) nifedipine 30 mg tablet extended release 30 mg PO DAILY Rx Instructions: for BP nystatin 100,000 unit/gram powder 1 applic topical BID Rx Instructions: under breast lidocaine 5 % adhesive patch,medicated 1 patch topical DAILY Rx Instructions: leave on most painful area for up to 12 hrs Treleale Ellipta 200-62.5-25 mcg blister with device 1 inh inhalation DAILY albuterol sulfate 2.5 mg /3 mL (0.083 %) solution for nebulization 2.5 mg inhalation Q4H PRN (Reason: Shortness Of Breath Or Wheezing) cranberry extract 500 mg capsule 500 mg PO DAILY Rx Instructions: administer with meals for UTI prevention sertraline 25 mg tablet 25 mg PO DAILY acetaminophen 325 mg tablet 650 mg PO BID PRN (Reason: Pain) atorvastatin 20 mg tablet 20 mg PO QPM Qty: 90 3RF Rx Instructions: PER PT'S GRANDDAUGHTER "DID NOT [employer]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 Discharge Orders: Discharge Order (Routine); Ordered 06/09/25 Ordered By: Kaykay Stevens Admission Data Admit Date/Time: 06/04/25 20:41 Attending Provider: Santosh Syed Admit Provider: Heather López Primary Care Provider: Beena Berman Other Providers: Heather López Hospital Stay Data Consultations 06/04/25 20:30 ED Decision to Admit Stat Diagnostic Imagining Performed 06/08/25 09:30 FL video swallow Routine Pending Results Patient Have Any Pending Studies at Discharge: No Discharge Instructions Given to Patient (Per Discharging Provider) Ms. Gamez, You were recently hospitalized secondary to diarrhea, nausea, and vomiting. You were found to have two viral GI infections and were treated supportively. Your symptoms have improved prior to discharge and you are stable to return home. While hospitalized, you also underwent a speech study and you should be on a minced and moist diet to prevent aspiration at home. Medications: Your medication list has been reviewed and reconciled upon discharge to ensure accuracy and continuity of care. An updated list of all your medications is included with your hospital discharge paperwork. Please review this list closely, and make note of any changes. Two over the counter medications that will be beneficial for you include 1 dose of Metamucil daily to help bind your stool together. Please use Imodium 2mg every 4 hours as needed for recurrent diarrhea. For the buttocks area, please clean daily with normal saline and dry thoroughly. Dust with stoma powder and then apply zinc barrier cream. Apply every 2 hours with repositioning and as needed if soiled. To the bilateral breast, groin, and abdominal folds, dry thoroughly after cleansing, apply nystatin powder twice daily. Wound Center appointment is on 06/22/2025 at 1pm. Address is [address] [facility], their phone number is [phone] Take your medications as instructed; do not skip a dose of your medicines. Make sure all of your doctors know every medicine you are taking (including razi-dkb-ksmkbbi medicines, vitamins, and supplements). Call your primary care provider before taking any new medicines (including over- the-counter medicines, vitamins, and supplements), because some of these may interact with your current medications, or may make your symptoms worse. Tell your primary care provider if you cannot afford your medications. Activity: You can do normal everyday activities as your body allows. Take rest breaks if you feel tired. Do not overexert. Stop activity if you have pain, shortness of breath or feel dizzy. Follow-up appointments: Make an appointment with your primary care physician within one week of discharge. A copy of this summary will be sent to them. Every time you see your primary care physician, or any other doctor, bring your medication list, and a list of questions. CONTACT YOUR PRIMARY CARE PROVIDER if you experience any of the following: Shortness of breath or difficulty breathing Fevers or chills Feeling tired with normal activity or experiencing dizziness or fainting Difficulty following your treatment plan, or difficulty taking medications CALL 911 OR GO TO THE EMERGENCY DEPARTMENT if you experience any of the following: Severe abdominal pain or nausea/vomiting Severe chest pain, or chest pain that radiates (moves) to your jaw or arm Sudden, severe shortness of breath or difficulty breathing Thank you for allowing us to participate in your care. Supervising Physician Co-Signing Physician Notes The patient was not seen by me. The chart was reviewed. Case discussed with TARIQ Salmon. Agree with assessment and plan Total Time Total Time Spent Total Time Spent (In Minutes): 50 Total Time Includes: Examination of the Patient, Discharge Planning and Medication Reconciliation Coding Level of Care Code 36341 INP/OBS DISCH >30 MIN Diagnoses Adlzy-ok-gyrkysj kidney injury N17.9; N18.9 Rotavirus enteritis A08.0 Gastroenteritis due to norovirus A08.11 Hyperkalemia E87.5 Metabolic acidosis, NAG, bicarbonate losses E87.20
[2025-06-09 16:42] VITALS: BP 125/69; PULSE 91
== END 2025-06-09 19:18 | disposition home or self-care (01) | DRG 392 ==
LOC: ED 18:25 → 2N 20:41 → SUATTDRO 20:41 → 2N 23:38
DX: E78.5 Hyperlipidemia, unspecified; N18.30 Chronic kidney disease, stage 3 unspecified; E11.22 Type 2 diabetes mellitus with diabetic chronic kidney disease; I48.92 Unspecified atrial flutter; R13.10 Dysphagia, unspecified; J44.9 Chronic obstructive pulmonary disease, unspecified; Z99.3 Dependence on wheelchair; A08.11 Acute gastroenteropathy due to Norwalk agent; A08.0 Rotaviral enteritis; G47.33 Obstructive sleep apnea (adult) (pediatric); Z79.899 Other long term (current) drug therapy; R79.89 Other specified abnormal findings of blood chemistry; F84.0 Autistic disorder; I12.9 Hypertensive chronic kidney disease with stage 1 through stage 4 chronic kidney disease, or unspecified chronic kidney disease; E11.40 Type 2 diabetes mellitus with diabetic neuropathy, unspecified; N17.9 Acute kidney failure, unspecified; Z87.891 Personal history of nicotine dependence; Z79.82 Long term (current) use of aspirin; E87.20 Acidosis, unspecified; E87.5 Hyperkalemia